=== PATIENT | male | born 1935 | race Hispanic/Latino ===

== ENCOUNTER 2018-12-05 08:43 | Emergency (ER) | payer MEDICARE, OTHER ==
[~2018-12-05] VITALS: Ht 177.8 cm; Wt 111.1 kg
--- OUTSIDE RECORDS SUMMARY | 2018-12-05 08:46 | XMS REPORT ---
Author Author [facility] [place] Address Unknown Phone Unavailable Care Team Providers Care Dispatcher Service Chief Name Role Phone FAUSTINA MONTEIRO Unavailable Unavailable Problems This patient has no known problems. Allergies, Adverse Reactions, Alerts This patient has no known allergies or adverse reactions. Medications This patient has no known medications. Results Test Description Test Time Test Comments Text Results Atomic Results Result Comments Stress Test - Treadmill ONLY [place] [id number] Patient Name : NIMA ZAVALA MR #: [id number] : 1935 Age/Sex: 82/M Adm Physician : FAUSTINA MONTEIRO MD Admit Date : Location : [place] Room/Bed : REPORT: Cardiology Report DATE OF STUDY: LEXISCAN NUCLEAR STRESS TEST INDICATION: Chest pain. TECHNIQUE: The patient was given 11 millicuries of Myoview. Resting images were obtained in the horizontal long axis, vertical long axis and short axis. The patient was then hooked up to the EKG machine. Lexiscan was infused over 15 seconds. After Lexiscan infusion, the patient was given 33 millicuries of Myoview. Stress images were obtained in the horizontal long axis, vertical long axis and short axis. RESULTS: 1. The resting EKG demonstrated normal sinus rhythm with some nonspecific ST and T wave changes. 2. There were no EKG changes and no symptoms during Lexiscan infusion. 3. There was normal perfusion to all segments of the myocardium in both stress and rest. 4. There was a mildly enlarged left ventricle with mild to moderate left ventricular dysfunction and an ejection fraction of 42%. CONCLUSION: There is no evidence of myocardial ischemia. There is mild to moderate left ventricular dysfunction with an ejection fraction of 42%. Job#: [id number] EV Signature Date Dictated By: FAUSTINA MONTEIRO MD Transcribed By: EDS on 07/22/17 <Electronically signed by FAUSTINA MONTEIRO MD><<Signature on File>>07/23/17 0744 COPY TO:
--- NOTE | 2018-12-05 09:15 | NUR ---
ABD SOFT NON TENDER AT THIS TIME PS 0 BUT WAS PS 10 ALL THROUGH THE NIGHT; OCC NAUSEA ONLY NO VOMITING OR DIARRHEA
[2018-12-05 09:38] LABS: BASOPHILS % 0.3 % (0.0-1.0); EOSINOPHILS % 0.3 % (0.0-6.0); HEMATOCRIT 41.1 % (38.2-49.6); HEMOGLOBIN 14.7 g/dL (14.0-18.0); LYMPHOCYTES # (AUTO) 1.4 (1.0-3.2); LYMPHOCYTES % 12.1 % (18.0-39.1); MEAN CORPUSCULAR HEMOGLOBIN 31.8 pg (28-32); MEAN CORPUSCULAR HGB CONC 35.8 g/dL (31-35); MONOCYTES # (AUTO) 0.5 (0.2-0.8); MONOCYTES % 4.6 % (4.4-11.3); NEUTROPHILS # (AUTO) 9.6 (2.1-6.9); NEUTROPHILS % 82.4 % (38.7-80.0); PLATELET COUNT 208 x10e3/uL (140-360); RED BLOOD COUNT 4.62 x10e6/uL (4.3-5.7); RED CELL DISTRIBUTION WIDTH 12.3 % (11.7-14.4)
[2018-12-05 09:57] LABS: INR 0.92; PROTHROMBIN TIME 13.2 seconds (11.9-14.5)
[2018-12-05 09:58] LABS: PARTIAL THROMBOPLASTIN TIME 35.3 seconds (23.8-35.5)
[2018-12-05 10:03] LABS: ALANINE AMINOTRANSFERASE 21 IU/L (0-55); ALBUMIN 3.8 g/dL (3.5-5.0); ALBUMIN/GLOBULIN RATIO 1.2 (0.8-2.0); ALKALINE PHOSPHATASE 77 IU/L (40-150); ANION GAP 16.1 mmol/L (8-16); BLOOD UREA NITROGEN 20 mg/dL (7-26); BUN/CREATININE RATIO 19 (6-25); CALCIUM 8.8 mg/dL (8.4-10.2); CARBON DIOXIDE 20 mmol/L (22-29); CHLORIDE 104 mmol/L (98-107); CREATININE, SERUM 1.04 mg/dL (0.72-1.25); EST GLOMERULAR FILTRATION RATE > 60 ML/MIN (60-); GLUCOSE 120 mg/dL (74-118); POTASSIUM 5.1 mmol/L (3.5-5.1); SODIUM 135 mmol/L (136-145)
[2018-12-05 10:10] LABS: CREATINE KINASE MB 4.6 ng/mL (0-5.0)
[2018-12-05 10:20] LABS: CLARITY,URINE CLEAR (CLEAR); COLOR,URINE YELLOW (YELLOW); LEUKOCYTE ESTERASE ,URINE NEGATIVE (NEGATIVE); NITRITE,URINE NEGATIVE (NEGATIVE)
[2018-12-05 10:21] LABS: BILIRUBIN,URINE NEGATIVE (NEGATIVE); KETONES,URINE NEGATIVE (NEGATIVE); PROTEIN,URINE DIPSTICK TRACE (NEGATIVE); URINE UROBILINOGEN 0.2 mg/dL (0.2 - 1)
[2018-12-05 10:56] VITALS: BP 148/69
== END 2018-12-05 10:59 | disposition home or self-care (01) ==
LOC: ER 08:43
DX: R10.33 Periumbilical pain (principal); K59.00 Constipation, unspecified
CPT/HCPCS: 36415; 80053; 81001; 82550; 82553; 84484; 85025; 85610; 85730; 93005; 99284

== ENCOUNTER 2020-10-27 13:42 | Observation (INO) | payer MEDICARE, OTHER ==
[~2020-10-27] VITALS: Ht 177.8 cm; Wt 110.2 kg
[2020-10-27] VITALS (7 sets, daily range): BP systolic 152–175; BP diastolic 79–84
[2020-10-27] MEDS ORDERED: FUROSEMIDE40 MG PO (14:16)
[2020-10-27] MEDS ORDERED: NABUMETONE750 MG PO (14:16)
[2020-10-27] MEDS ORDERED: LEVOTHYROXINE50 MCG PO (14:16)
[2020-10-27] MEDS ORDERED: GEMFIBROZIL600 MG PO (14:16)
[2020-10-27] MEDS ORDERED: ROSUVASTATIN CA10 MG PO (14:16)
[2020-10-27 14:34] LABS: BASOPHILS # (AUTO) 0.1 (0.0-0.1); BASOPHILS % 0.8 % (0.0-1.0); EOSINOPHILS # (AUTO) 0.3 (0.0-0.4); EOSINOPHILS % 3.8 % (0.0-6.0); HEMATOCRIT 43.4 % (38.2-49.6); HEMOGLOBIN 14.9 g/dL (14.0-18.0); LYMPHOCYTES # (AUTO) 2.1 (1.0-3.2); LYMPHOCYTES % 31.5 % (18.0-39.1); MEAN CORPUSCULAR HEMOGLOBIN 31.6 pg (28-32); MEAN CORPUSCULAR HGB CONC 34.3 g/dL (31-35); MEAN CORPUSCULAR VOLUME 91.9 fL (81-99); MONOCYTES # (AUTO) 0.4 (0.2-0.8); MONOCYTES % 5.6 % (4.4-11.3); NEUTROPHILS # (AUTO) 3.8 (2.1-6.9); PLATELET COUNT 252 x10e3/uL (140-360); RED BLOOD COUNT 4.72 x10e6/uL (4.3-5.7); RED CELL DISTRIBUTION WIDTH 12.4 % (11.7-14.4)
[2020-10-27 14:42] LABS: INR 0.92; PROTHROMBIN TIME 12.9 seconds (11.9-14.5)
[2020-10-27 14:43] LABS: PARTIAL THROMBOPLASTIN TIME 31.4 seconds (23.8-35.5)
[2020-10-27 14:52] LABS: ALBUMIN 3.7 g/dL (3.5-5.0); ANION GAP 14.3 mmol/L (8-16); CALCIUM 8.9 mg/dL (8.4-10.2); CREATININE, SERUM 1.17 mg/dL (0.72-1.25); MAGNESIUM 2.1 MG/DL (1.3-2.1); POTASSIUM 4.3 mmol/L (3.5-5.1)
[2020-10-27 14:59] LABS: CREATINE KINASE MB 8.5 ng/mL (0-5.0)
[2020-10-27] MEDS ORDERED: ASPIRIN 325 MG TAB EC PO NR (16:00)
[2020-10-27] MEDS ORDERED: SODIUM CHLORIDE 0.9% 1000ML 1,000 ML IV SCH (16:00)
[2020-10-27] MEDS ORDERED: ONDANSETRON HCL INJ 2MG/ML 2ML 2 MG/ML VIAL IV PRN (16:00)
[2020-10-27] MEDS ORDERED: LORAZEPAM INJ 2 MG/ML VIAL IV ONE (17:30)
[2020-10-28 08:55] VITALS: BP 152/84
[2020-10-28] MEDS ORDERED: ASPIRIN 81 MG ENTERIC COATED PO SCH (09:00)
[2020-10-28] MEDS: LEVOTHYROXINE SODIUM 50 MCG TAB PO SCH (09:00)
[2020-10-28] MEDS: ASPIRIN 325 MG TAB EC PO SCH (09:00)
[2020-10-28] MEDS: GEMFIBROZIL 600 MG TAB PO SCH ×2 (09:00→17:00)
[2020-10-28] MEDS: FUROSEMIDE 40 MG TAB PO SCH (09:00)
[2020-10-28] MEDS: CRESTOR 10MG PO SCH (09:00)
[2020-10-28 09:35] LABS: BASOPHILS % 0.6 % (0.0-1.0); EOSINOPHILS # (AUTO) 0.2 (0.0-0.4); EOSINOPHILS % 2.5 % (0.0-6.0); HEMATOCRIT 43.4 % (38.2-49.6); HEMOGLOBIN 14.8 g/dL (14.0-18.0); LYMPHOCYTES # (AUTO) 2.3 (1.0-3.2); LYMPHOCYTES % 34.2 % (18.0-39.1); MEAN CORPUSCULAR HGB CONC 34.1 g/dL (31-35); MEAN CORPUSCULAR VOLUME 90.8 fL (81-99); MONOCYTES # (AUTO) 0.5 (0.2-0.8); MONOCYTES % 7.3 % (4.4-11.3); NEUTROPHILS # (AUTO) 3.7 (2.1-6.9); PLATELET COUNT 277 x10e3/uL (140-360); RED BLOOD COUNT 4.78 x10e6/uL (4.3-5.7); RED CELL DISTRIBUTION WIDTH 12.4 % (11.7-14.4)
[2020-10-28 09:35] LABS: CLARITY,URINE CLEAR (CLEAR); COLOR,URINE YELLOW (YELLOW); KETONES,URINE NEGATIVE (NEGATIVE); LEUKOCYTE ESTERASE ,URINE NEGATIVE (NEGATIVE); NITRITE,URINE NEGATIVE (NEGATIVE); PROTEIN,URINE DIPSTICK NEGATIVE (NEGATIVE); URINE UROBILINOGEN 1 mg/dL (0.2 - 1)
[2020-10-28 09:36] LABS: BACTERIA,URINE RARE /HPF; EPITHELIAL CELLS,URINE FEW /LPF; RBC,URINE 0-5 /HPF (0-5); WBC,URINE (MAN) 0-5 /HPF (0-5)
[2020-10-28 09:37] VITALS: BP 153/73
[2020-10-28 10:04] LABS: ALBUMIN 3.6 g/dL (3.5-5.0); ALBUMIN/GLOBULIN RATIO 1.1 (0.8-2.0); ANION GAP 13.9 mmol/L (8-16); CALCIUM 8.9 mg/dL (8.4-10.2); CREATININE, SERUM 1.15 mg/dL (0.72-1.25); POTASSIUM 3.9 mmol/L (3.5-5.1)
[2020-10-28 10:37] LABS: CREATINE KINASE MB 7.5 ng/mL (0-5.0)
[2020-10-28 12:18] VITALS: BP 142/75
[2020-10-28 17:37] VITALS: BP 136/84
[2020-10-28 20:00] VITALS: BP 157/89
[2020-10-28 21:00] VITALS: BP 157/89
[2020-10-29] VITALS: BP 153/83
[2020-10-29 04:00] VITALS: BP 145/62
[2020-10-29 06:13] LABS: BASOPHILS % 0.6 % (0.0-1.0); EOSINOPHILS # (AUTO) 0.2 (0.0-0.4); EOSINOPHILS % 3.2 % (0.0-6.0); HEMATOCRIT 42.7 % (38.2-49.6); HEMOGLOBIN 14.5 g/dL (14.0-18.0); LYMPHOCYTES # (AUTO) 1.9 (1.0-3.2); MEAN CORPUSCULAR HEMOGLOBIN 30.9 pg (28-32); MONOCYTES # (AUTO) 0.4 (0.2-0.8); MONOCYTES % 7.9 % (4.4-11.3); NEUTROPHILS # (AUTO) 2.8 (2.1-6.9); NEUTROPHILS % 51.9 % (38.7-80.0); PLATELET COUNT 244 x10e3/uL (140-360); RED BLOOD COUNT 4.69 x10e6/uL (4.3-5.7); RED CELL DISTRIBUTION WIDTH 12.5 % (11.7-14.4)
[2020-10-29 06:49] LABS: CHOL/HDL RATIO 5.4 (3.9-4.7)
[2020-10-29 07:13] LABS: ANION GAP 13.7 mmol/L (8-16); CALCIUM 8.8 mg/dL (8.4-10.2); CREATININE, SERUM 1.26 mg/dL (0.72-1.25); POTASSIUM 3.7 mmol/L (3.5-5.1)
[2020-10-29 07:48] VITALS: BP 145/94
[2020-10-29 07:53] VITALS: BP 145/94
[2020-10-29] MEDS: ASPIRIN 325 MG TAB EC PO SCH (08:47)
[2020-10-29] MEDS: GEMFIBROZIL 600 MG TAB PO SCH (08:47)
[2020-10-29] MEDS: LEVOTHYROXINE SODIUM 50 MCG TAB PO SCH (08:47)
[2020-10-29] MEDS: FUROSEMIDE 40 MG TAB PO SCH (08:47)
[2020-10-29] MEDS: CRESTOR 10MG PO SCH (08:47)
[2020-10-29] MEDS ORDERED: ECOTRIN325 MG PO (09:34)
[2020-10-29] MEDS ORDERED: LIPITOR10 MG PO (09:35)
== END 2020-10-29 09:57 | disposition home health service (06) ==
LOC: ER 13:58 → ERHOLD 16:00 → INTOOBSV 16:00 → MED/SURG2 17:30
PROVIDERS: ADMIT Internal Medicine; ATTEND Internal Medicine
DX: I63.531 Cerebral infarction due to unspecified occlusion or stenosis of right posterior cerebral artery (principal); G81.94 Hemiplegia, unspecified affecting left nondominant side; G51.0 Bell's palsy; E03.9 Hypothyroidism, unspecified; I10 Essential (primary) hypertension; E78.5 Hyperlipidemia, unspecified; Z86.010 Personal history of colon polyps; Z20.822 Contact with and (suspected) exposure to COVID-19
CPT/HCPCS: 36415 ×3; 70450; 70551; 71045; 80048; 80053 ×2; 80061; 81001; 82550 ×2; 82553 ×2; 83735; 84443; 84484 ×2; 85025 ×3; 85610; 85730; 87086; 93005; 93306; 93880; 99284; G0378 ×3; J2060; J7030; U0002